=== PATIENT | male | born 1990 | race African-American/Black ===

== ENCOUNTER 2017-02-21 13:07 | Emergency (ER) | payer OTHER ==
[~2017-02-21] VITALS: Ht 175.3 cm; Wt 64.5 kg
[2017-02-21 13:25] VITALS: BP 135/93
[2017-02-21] MEDS ORDERED: TRAMADOL HCL50 MG PO (15:54)
[2017-02-21] MEDS ORDERED: NAPROSYN500 MG PO (15:54)
== END 2017-02-21 16:04 | disposition home or self-care (01) ==
LOC: EME 13:07
PROC: 0H9CXZZ Drainage of Left Upper Arm Skin, External Approach (ICD-10-PCS; principal; 2017-02-21)
DX: L02.414 Cutaneous abscess of left upper limb (principal); Z86.19 Personal history of other infectious and parasitic diseases; Z87.828 Personal history of other (healed) physical injury and trauma; F17.200 Nicotine dependence, unspecified, uncomplicated
CPT/HCPCS: 99281; 99284; J1885

== ENCOUNTER 2017-03-22 10:01 | Emergency (ER) | payer OTHER ==
[~2017-03-22] VITALS: Ht 175.3 cm; Wt 63.2 kg
[~2017-03-22 10:01] MED LIST: NAPROSYN500 MG PO; TRAMADOL HCL50 MG PO
[2017-03-22 10:10] VITALS: BP 156/82
[2017-03-22] MEDS ORDERED: ULTRAM50 MG PO ×2 (12:02→12:37)
[2017-03-22] MEDS ORDERED: CLEOCIN300 MG PO (12:02)
[2017-03-22] MEDS ORDERED: NAPROSYN500 MG PO (12:03)
== END 2017-03-22 12:43 | disposition home or self-care (01) ==
LOC: EME 10:01
PROC: 0H9CXZZ Drainage of Left Upper Arm Skin, External Approach (ICD-10-PCS; principal; 2017-03-22)
DX: L02.414 Cutaneous abscess of left upper limb (principal); M79.5 Residual foreign body in soft tissue; Z87.828 Personal history of other (healed) physical injury and trauma; F17.200 Nicotine dependence, unspecified, uncomplicated
CPT/HCPCS: 73060; 99281; 99284

== ENCOUNTER 2017-04-10 13:03 | Emergency (ER) | payer OTHER ==
[~2017-04-10] VITALS: Ht 175.3 cm; Wt 63.0 kg
[~2017-04-10 13:03] MED LIST changes: +CLEOCIN300 MG PO; +ULTRAM50 MG PO
[2017-04-10] MEDS ORDERED: FLEXERIL10 MG PO (15:08)
[2017-04-10] MEDS ORDERED: LIDODERM 5% P1 PATCH TD (15:08)
[2017-04-10] MEDS ORDERED: ULTRAM50 MG PO (15:08)
[2017-04-10] MEDS ORDERED: MOTRIN800 MG PO (15:08)
[2017-04-10 15:18] VITALS: BP 139/78
== END 2017-04-10 15:20 | disposition home or self-care (01) ==
LOC: EME 13:03
DX: S20.211A Contusion of right front wall of thorax, initial encounter (principal); Y04.0XXA Assault by unarmed brawl or fight, initial encounter
CPT/HCPCS: 71020; 99281; 99284; J1885

== ENCOUNTER 2017-05-06 13:09 | Emergency (ER) | payer OTHER ==
[~2017-05-06] VITALS: Ht 175.3 cm; Wt 62.9 kg
[~2017-05-06 13:09] MED LIST changes: +FLEXERIL10 MG PO; +LIDODERM 5% P1 PATCH TD; +MOTRIN800 MG PO
[2017-05-06 13:12] VITALS: BP 139/81
[2017-05-06] MEDS ORDERED: CLINDAMYCIN HC150 MG PO (14:17)
[2017-05-06] MEDS ORDERED: NAPROXEN500 MG PO (14:17)
== END 2017-05-06 14:49 | disposition home or self-care (01) ==
LOC: EME 13:09
PROC: 0H9EXZZ Drainage of Left Lower Arm Skin, External Approach (ICD-10-PCS; principal; 2017-05-06)
DX: L02.414 Cutaneous abscess of left upper limb (principal); Z18.89 Other specified retained foreign body fragments; S41.142S Puncture wound with foreign body of left upper arm, sequela; W34.00XS Accidental discharge from unspecified firearms or gun, sequela; F17.200 Nicotine dependence, unspecified, uncomplicated
CPT/HCPCS: 87070; 87075; 87205; 99281; 99284

== ENCOUNTER 2017-06-14 17:19 | Emergency (ER) | payer OTHER ==
[~2017-06-14] VITALS: Ht 175.3 cm; Wt 62.9 kg
[~2017-06-14 17:19] MED LIST changes: +CLINDAMYCIN HC150 MG PO; +NAPROXEN500 MG PO
[2017-06-14 18:49] LABS: EOSINOPHIL (%) 2.7 % (0-5); EOSINOPHIL COUNT 0.2 K/uL (0-0.3); HEMATOCRIT 47.6 % (38.0-50.0); IMMATURE GRANULOCYTE (%) 0.2 % (0.0-0.7); INSTRUMENT ABS NEUTROPHIL CT 2.5 K/uL; LYMPHOCYTE COUNT 2.4 K/uL (1.0-2.8); MCH 27.6 PG (29.0-34.0); MCHC 32.8 G/DL (30.0-36.0); MCV 84.2 FL (86-99); MEAN PLAT.VOLUME 9.1 uM^3 (9.0-12.4); MONOCYTE (%) 7.3 % (3-12); MONOCYTE COUNT 0.4 K/uL (0-0.8); NEUTROPHIL (%) 45.1 % (45-76); NEUTROPHIL COUNT 2.5 K/uL (1.8-6.4); PLATELET COUNT 241 K/uL (156-360); RBC DIS.WIDTH-CV 12.5 % (11.8-14.6); RBC DIS.WIDTH-SD 38.2 % (39-53); RED BLOOD COUNT 5.65 M/uL (4.00-5.50); WHITE BLOOD COUNT 5.5 K/uL (4.1-10.2)
[2017-06-14] MEDS ORDERED: VIBRAMYCIN100 MG PO (19:51)
[2017-06-14 20:19] VITALS: BP 131/84
== END 2017-06-14 20:23 | disposition home or self-care (01) ==
LOC: EME 17:19
PROVIDERS: Physician Assistant
DX: S51.802D Unspecified open wound of left forearm, subsequent encounter (principal); L08.9 Local infection of the skin and subcutaneous tissue, unspecified; Y24.9XXD Unspecified firearm discharge, undetermined intent, subsequent encounter
CPT/HCPCS: 83605; 85025; 87040; 87070; 87075; 87205; 99281; 99284